=== PATIENT | female | born 1995 | race Asian ===

== ENCOUNTER → 2017-08-11 | Outpatient (CLI) | payer OTHER ==
--- NOTE | 2017-08-11 13:35 | MAMMOGRAPHY REPORT ---
ULTRASOUND OF LEFT BREAST: 08/11/2017 CLINICAL HISTORY: 22-year-old woman presents after her provider felt a lump in the 9:00 left breast o n physical exam. Patient also notes occasional pain in this area. No skin erythema, thickening or n ipple discharge. No family history of breast cancer. COMPARISON: No prior exams were available for comparison. FINDINGS: Targeted ultrasound was performed in the area of lump pointed out by the patient (9:00 lef t breast, 1 cm from the nipple). There is a parallel hypoechoic lobulated and circumscribed solid ma ss measuring 10.7 x 8.4 x 15.0 mm. 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 However, given the palpable nature and size greater than 1 cm, definitive characterizat ion with an ultrasound-guided core needle biopsy is recommended. IMPRESSION: ACR BI-RADS CATEGORY 4: SUSPICIOUS - FOLLOW-UP RECOMMENDED 1. Ultrasound-guided core biopsy is recommended for an indeterminate solid palpable 15 mm mass in th e 9:00 left breast. These results and recommendations were discussed with the patient at the time of the exam. She tenta tively scheduled the biopsy prior to leaving the department. Lisa Norton M.D. ay/:08/11/2017 09:12:06 Medical Insurance Collector: Deann LYNNE)([place]), [facility] letter sent: Abnormal 4/5 BI-RADS Code: ACR BI-RADS Category 4: Suspicious
== END | disposition home or self-care (01) ==
LOC: C.MAMM 08:47
PROVIDERS: ATTEND Physician Assistant Medical
DX: Z12.31 Encounter for screening mammogram for malignant neoplasm of breast (principal); N63.20 Unspecified lump in the left breast, unspecified quadrant

== ENCOUNTER → 2017-08-20 | Outpatient (CLI) | payer OTHER ==
--- NOTE | 2017-08-20 11:13 | Discharge Instructions ---
Discharge Instructions Procedure Procedure Date: Aug 20, 2017. Reason for visit: Left Palpable Mass. Discharge Discharge Date: Aug 20, 2017. Discharge Diagnosis: post left breast ultrasound guided core biopsy Instructions Activity Recommendations: Additional Limitations (see below) Return to School/Work: no limitations Recommended Home Diet: No Limitations Provider Instructions: ACTIVITY RECOMMENDATIONS: * No lifting, pushing, pulling or exercising the affected side for three days. RETURN TO SCHOOL/WORK: * You may return to work/school after the procedure, but do not perform any strenuous activities for 24 to 48 hours. MEDICATIONS: * Tylenol (two 325 mg) every four to six hours if needed for mild pain (if not allergic to Tylenol). DIET: * Resume previous diet. SPECIAL CARE INSTRUCTIONS: * Keep biopsy site dry for 24 hours. May shower after 24 hours, but do not soak (bathe) incision. * May remove Tegaderm (plastic patch) tomorrow AFTER showering. * Leave the steri-strips on for one week. Allow the steri-strips to fall off by themselves. If not off after one week, you may remove them. You may place a Bandaid crosswise over the strips, if desired. * Apply ice 10 minutes on and 10 minutes off as needed. * Wear a bra at bedtime to sleep more comfortably for 2-3 days. * Your referring physician should have the results after approximately 5 to 7 business days. * Call for unusual bleeding, fever, drainage, etc or if you have any questions call [phone] during normal business hours or after hours call Dr Norton, . FOLLOW UP VISIT: Follow-up with Referring Physician as scheduled. Allergies Coded Allergies: No Known Allergies (Unverified , 06/21/16) Negar Obando Recommendations: Call your doctor if: * Temperature above 101 degrees * Pain not relieved by pain medicine ordered * There is increased drainage or redness from any incision * You have any unanswered questions or concerns. Your Doctors Instructions noted above were prepared by provider Lisa Norton. Patient Signature Section: Patient Instructions Signature Page Shakila Valentin Patient (or Guardian) Signature/Date: I have read and understand the instructions given to me by my caregivers. Caregiver/RN/Doctor Signature/Date: The above-named patient and/or guardian has received patient instructions on this date. + Original Patient Signature Page (only) stays with chart. Please make copy for patient.
--- NOTE | 2017-08-20 15:30 | MAMMOGRAPHY REPORT ---
ULTRASOUND GUIDED BIOPSY LEFT BREAST: 08/20/2017 CLINICAL HISTORY: Solid lobulated circumscribed parallel 15 mm palpable mass in the 9:00 left breast. Patient presents for ultrasound-guided core biopsy. COMPARISON: Comparison is made to exam dated: 08/11/2017 ultrasound - [facility]. PATIENT CONSENT: The procedure, risks and benefits were discussed with the patient and informed conse nt was obtained both verbally and in writing. Specific risks to this procedure include: bleeding, in fection, puncture of adjacent structure, nontarget biopsy, sampling error, pain, metal allergy and me dication reaction. PROCEDURE DESCRIPTION: A time out was performed and the left breast was agreed as the site of biopsy. The skin was prepped and draped in the usual sterile fashion. The solid palpable mass in the 9:00 le ft breast was chosen as the target for biopsy. Subcutaneous and intraparenchymal 1% buffered lidocain e, with and without epinephrine, was administered as local anesthesia. A skin incision was made. Thr ough the incision, 4 samples were taken with a 14 gauge Achieve biopsy device. A ribbon shaped metall ic marker was placed at the biopsy site. Hemostasis was achieved after manual compression. The patien t tolerated the procedure well and there was no immediate complication. The samples were sent to the pathology department in an appropriately labeled container. Post procedure mammography was deferred given the patient's age. IMPRESSION: ULTRASOUND GUIDED BIOPSY Status post ultrasound guided core biopsy of a solid palpable 15 mm mass in the 9:00 left breast, wit h ribbon-shaped biopsy marker clip placed at the site. The patient will receive notification of the pathology results from her referring physician. Lisa Norton M.D. ay/:08/20/2017 11:18:34 Attending Technologist: Lyly NGUYEN(Ruslan)(M), [facility] Negative Developer: Prudence Matt MD, [facility]
== END | disposition home or self-care (01) ==
LOC: C.MAMM 10:26
PROVIDERS: ATTEND Physician Assistant Medical
DX: N63.20 Unspecified lump in the left breast, unspecified quadrant (principal); D24.2 Benign neoplasm of left breast